=== PATIENT | female | born 1980 | race American Indian/Alaskan Native ===

== ENCOUNTER 2017-02-09 21:15 | Emergency (ER) | payer OTHER, MEDICAID ==
[2017-02-09 21:33] VITALS: BP 128/80; PULSE 75; RESP 20; TEMP 97.9; O2SAT 100
[2017-02-09] MEDS ORDERED: Tetanus/Diphtheria Toxoids 0.5 ml Syringe IM ONE ×2 (21:52→21:55)
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
[2017-02-09] MEDS ORDERED: Bacitracin 500 Units/gm Oint Foilpak UD ONE (22:17)
[2017-02-09] MEDS ORDERED: Bacitracin 500 Units/gm Oint Foilpak UD TOP STA (22:19)
== END 2017-02-09 22:27 | disposition home or self-care (01) ==
LOC: C.ER 21:15
DX: S10.93XA Contusion of unspecified part of neck, initial encounter (principal); S63.502A Unspecified sprain of left wrist, initial encounter; S80.211A Abrasion, right knee, initial encounter; V48.5XXA Car driver injured in noncollision transport accident in traffic accident, initial encounter